=== PATIENT | male | born 1970 | race Caucasian/White ===

== ENCOUNTER → 2020-12-13 | Outpatient (CLI) | payer MEDICAID ==
--- NOTE | 2020-12-14 02:44 | MR ---
EXAMINATION TYPE: MR brain wo/w con DATE OF EXAM: 12/13/2020 COMPARISON: None HISTORY: Vision loss right eye, migraine. CONTRAST: Standard multiplanar, multisequence MRI departmental protocol utilizing 7.5 mL intravenous Gadavist g adolinium contrast. Multiplanar multiecho imaging of the brain was performed with contrast. Ventricles have fairly normal size. There is no mass effect nor midline shift. There is no sign of in tracranial hemorrhage. Corpus callosum appears normal. Sella turcica is normal. Optic chiasm appears normal. Diffusion images show no evidence of an infarct. The jesus-white matter structures have fairly normal signal pattern. There is no evidence of cerebral edema. There is normal enhancement of the venous sinuses. There is no evidence of sellar mass. Pituitary sta lk is in the midline. There is no evidence of orbital mass. IMPRESSION: Negative MR scan of the brain. I do not see a cause for vision loss.
== END | disposition home or self-care (01) ==
LOC: RADMRIMAIN 20:37
PROVIDERS: ATTEND Ophthalmology
DX: H53.8 Other visual disturbances (principal); G43.909 Migraine, unspecified, not intractable, without status migrainosus
CPT/HCPCS: 70553; A9585

== ENCOUNTER → 2023-06-03 | Outpatient (CLI) | payer BC ==
--- NOTE | 2023-06-04 10:25 | CT ---
EXAMINATION TYPE: CT sinus wo con DATE OF EXAM: 06/03/2023 COMPARISON: None HISTORY: Sinus drainage - states that he blew out a polyp CT DLP: 532.3 mGycm CONTRAST: 0 mL of Isovue 300 The paranasal sinuses are examined in the axial plane at 2 mm thick sections. Reconstructed images i n the coronal plane were obtained. There is dental amalgam scatter artifact The maxillary sinuses are clear. There may be some minimal anterior left ethmoid air cell mucosal th ickening. The sphenoid sinuses are clear. The frontal sinuses are clear. The septum is evaluated. There is septal deviation to the left. Appears to be some mucosal thickenin g or polyp along the left nasal passage wall. The ostiomeatal units are patent. IMPRESSION: 1. Minimal mucosal thickening anterior left ethmoid air cell. 2. Retention cyst or polyp left maxillary wall within the nasal passage.
== END | disposition home or self-care (01) ==
LOC: RADCTMAIN 16:06
PROVIDERS: ATTEND Otolaryngology
DX: J34.89 Other specified disorders of nose and nasal sinuses (principal); J33.8 Other polyp of sinus
CPT/HCPCS: 70486

== ENCOUNTER 2023-09-24 02:52 | Emergency (ER) | payer BC ==
[2023-09-24 03:30] VITALS: TEMP 97.8
[2023-09-24 03:39] LABS: Basophils # (A) 0.1 k/uL (0-0.2); Basophils % (A) 1 %; Eosinophils # (A) 0.1 k/uL (0-0.7); Eosinophils % (A) 3 %; HCT 40.6 % (39.0-53.0); HGB 14.7 gm/dL (13.0-17.5); Lymphocytes # (A) 1.6 k/uL (1.0-4.8); Lymphocytes % (A) 29 %; MCH 31.1 pg (25.0-35.0); MCHC 36.1 g/dL (31.0-37.0); MCV 86.1 fL (80.0-100.0); Mean Platelet Volume 7.7; Monocytes # (A) 0.3 k/uL (0-1.0); Monocytes % (A) 5 %; Neutrophils # (A) 3.2 k/uL (1.3-7.7); Neutrophils % (A) 60 %; Platelet Count 224 k/uL (150-450); RBC 4.72 m/uL (4.30-5.90); RDW 12.8 % (11.5-15.5); WBC 5.3 k/uL (3.8-10.6)
--- NOTE | 2023-09-24 03:50 | ED ---
General Adult HPI - General Chief complaint: Dizziness Stated complaint: Dizziness, High blood pressure, weakness Time Seen by Provider: 09/24/23 03:06 Source: patient Mode of arrival: ambulatory Limitations: no limitations - History of Present Illness Initial comments: Connor is a very healthy 53-year-old gentleman who presents the ER today for evaluation of an episode of hypertension. Patient states that over the past couple of notes his primary care and his ENT have noted that his blood pressure is mildly elevated so something they are closely watching. He is not currently medicated. Patient states he has been in his usual state of health has been eating and drinking his usual diet not dehydrated no nausea vomiting or diarrhea. He states he went to bed at his usual time and woke up to use the restroom but when he stood up he felt very lightheaded his noted that his face was flushed she checked his blood pressure and noted that it was significantly elevated with diastolic over 115, she had him lay down for 15 minutes but rechecked and his diastolic remained 111 so she decided bring him to the ER for evaluation. Patient reports he had no headache no vision changes no chest pain no palpitations or no shortness of breath with this episode he just stood up felt lightheaded and then sat back down and noted he was flushed. Patient reports minimal caffeine intake, no smoking no drugs no alcohol. - Related Data Allergies Allergy/AdvReac Type Severity Reaction Status Date / Time No Known Allergies Allergy Verified 09/24/23 03:02 Review of Systems ROS Statement: Those systems with pertinent positive or pertinent negative responses have been documented in the HPI. ROS Other: All systems not noted in ROS Statement are negative. Past Medical History Past Medical History: No Reported History Additional Past Surgical History / Comment(s): Deviated septum 4 weeks ago, perforated ulcer in early 20's Smoking Status: Former smoker Past Alcohol Use History: None Reported Past Drug Use History: None Reported General Exam Limitations: no limitations General appearance: alert, in no apparent distress Head exam: Present: atraumatic Eye exam: Present: PERRL ENT exam: Present: normal exam Neck exam: Present: normal inspection Respiratory exam: Present: normal lung sounds bilaterally. Absent: respiratory distress Cardiovascular Exam: Present: regular rate, normal rhythm GI/Abdominal exam: Present: soft. Absent: distended Rectal exam: Present: deferred Extremities exam: Present: normal inspection, full ROM. Absent: pedal edema Back exam: Present: normal inspection Neurological exam: Present: alert, oriented X3 Psychiatric exam: Present: normal affect, normal mood Skin exam: Present: warm, dry, intact Course Vital Signs 09/24/23 09/24/23 09/24/23 02:57 03:56 04:31 Temperature 97.8 F Pulse Rate 86 69 60 Respiratory 18 16 16 Rate Blood Pressure 158/101 135/92 127/82 O2 Sat by Pulse 100 96 94 L Oximetry 09/24/23 04:45 Temperature Pulse Rate 66 Respiratory 16 Rate Blood Pressure 121/84 O2 Sat by Pulse 99 Oximetry Medical Decision Making - Medical Decision Making Was pt. sent in by a medical professional or institution (, PA, POWER WASHER, urgent care, hospital, or longterm...) When possible be specific @ -No Did you speak to anyone other than the patient for history (EMS, parent, family, police, friend...)? What history was obtained from this source @ --Bedside Did you review nursing and triage notes (agree or disagree)? Why? @ -I reviewed and agree with nursing and triage notes Were old charts reviewed (outside hosp., previous admission, EMS record, old EKG, old radiological studies, urgent care reports/EKG's, longterm records)? Report findings @ -No old charts were reviewed Differential Diagnosis (chest pain, altered mental status, abdominal pain women, abdominal pain men, vaginal bleeding, weakness, fever, dyspnea, syncope, headache, dizziness, GI bleed, back pain, seizure, CVA, palpatations, mental health)? @ -Differential Palpitations Ventricular arrhythmias, atrial arrhythmias, myocardial infarction, anemia, thyrotoxicosis, electrolyte imbalance, hypokalemia, pulmonary embolism, pulm onary disease, drugs, alcohol, anxiety, stress.... This is not meant to be an all-inclusive list. EKG interpreted by me (3pts min.). @ -As above X-rays interpreted by me (1pt min.). @ -None done CT interpreted by me (1pt min.). @ -None done U/S interpreted by me (1pt. min.). @ -None done What testing was considered but not performed or refused? (CT, X-rays, U/S, labs)? Why? @ -None What meds were considered but not given or refused? Why? @ -Antihypertensives were discussed but not given due to normalization of the patient's blood pressure Did you discuss the management of the patient with other professionals (professionals i.e. , PA, POWER WASHER, lab, RT, psych nurse, social services director, shingle weaver, teacher, school services officer, case technician)? Give summary @ -No Was smoking cessation discussed for >3mins.? @ -No Was critical care preformed (if so, how long)? @ -No Were there social determinants of health that impacted care today? How? (Homelessness, low income, unemployed, alcoholism, drug addiction, transportation, low edu. Level, literacy, decrease access to med. care, longterm, rehab)? @ -No Was there de-escalation of care discussed even if they declined (Discuss DNR or withdrawal of care, Hospice)? DNR status @ -No What co-morbidities impacted this encounter? (DM, HTN, Smoking, COPD, CAD, Cancer, CVA, ARF, Chemo, Hep., AIDS, mental health diagnosis, sleep apnea, morbid obesity)? @ -None Was patient admitted / discharged? Hospital course, mention meds given and route, prescriptions, significant lab abnormalities, going to OR and other pertinent info. @ -Discharge The patient was seen and evaluated, history was obtained from the patient and . Patient seemed to stand up to get lightheaded sit down and then check his blood pressure noted it was elevated. Uncertain what the provocation for this was. Patient's labs are unremarkable patient's blood pressure normalized here patient has close outpatient follow-up with his primary care discomfort plan for discharge home. Undiagnosed new problem with uncertain prognosis? @ -No Drug Therapy requiring intensive monitoring for toxicity (Heparin, Nitro, Insulin, Cardizem)? @ -No Were any procedures done? @ -No Diagnosis/symptom? @ -Episode of hypertension Acute, or Chronic, or Acute on Chronic? @ -Acute Uncomplicated (without systemic symptoms) or Complicated (systemic symptoms)? @ -Complicated with lightheadedness and flushing Side effects of treatment? @ -No Exacerbation, Progression, or Severe Exacerbation? @ -No Poses a threat to life or bodily function? How? (Chest pain, USA, [place], pneumonia, PE, COPD, DKA, ARF, appy, cholecystitis, CVA, Diverticulitis, Homicidal, Suicidal, threat to staff... and all critical care pts) @ -Unlikely - Lab Data Result diagrams: 09/24/23 03:33 09/24/23 03:33 Lab Results 09/24/23 09/24/23 Range/Units 03:33 03:33 WBC 5.3 (3.8-10.6) k/uL RBC 4.72 (4.30-5.90) m/uL Hgb 14.7 (13.0-17.5) gm/dL Hct 40.6 (39.0-53.0) % MCV 86.1 (80.0-100.0) fL MCH 31.1 (25.0-35.0) pg MCHC 36.1 (31.0-37.0) g/dL RDW 12.8 (11.5-15.5) % Plt Count 224 (150-450) k/uL MPV 7.7 Neutrophils % 60 % Lymphocytes % 29 % Monocytes % 5 % Eosinophils % 3 % Basophils % 1 % Neutrophils # 3.2 (1.3-7.7) k/uL Lymphocytes # 1.6 (1.0-4.8) k/uL Monocytes # 0.3 (0-1.0) k/uL Eosinophils # 0.1 (0-0.7) k/uL Basophils # 0.1 (0-0.2) k/uL Sodium 141 (137-145) mmol/L Potassium 3.6 (3.5-5.1) mmol/L Chloride 111 H (98-107) mmol/L Carbon Dioxide 21 L (22-30) mmol/L Anion Gap 9 mmol/L BUN 15 (9-20) mg/dL Creatinine 0.71 (0.66-1.25) mg/dL Est GFR (CKD-EPI)AfAm >90 (>60 ml/min/1.73 sqM) Est GFR (CKD-EPI)NonAf >90 (>60 ml/min/1.73 sqM) Glucose 102 H (74-99) mg/dL Calcium 8.9 (8.4-10.2) mg/dL Total Bilirubin 0.8 (0.2-1.3) mg/dL AST 30 (17-59) U/L ALT 18 (4-49) U/L Alkaline Phosphatase 77 (38-126) U/L Total Protein 6.5 (6.3-8.2) g/dL Albumin 4.0 (3.5-5.0) g/dL TSH 1.800 (0.465-4.680) mIU/L Disposition Clinical Impression: Hypertension Disposition: HOME SELF-CARE Condition: Stable Additional Instructions: Continue to monitor your blood pressure at home follow-up with your primary care provider for any persistently elevated readings, return to the ER if you develop any chest pain palpitation shortness of breath or any new or concerning symptoms Is patient prescribed a controlled substance at d/c from ED?: No Referrals: Anuj Grimm MD [Primary Care Provider] - 1-2 days
[2023-09-24 04:27] LABS: ALT 18 U/L (4-49); AST 30 U/L (17-59); African American GFR (CKD) >90 (>60 ml/min/1.73 sqM); Alkaline Phosphatase 77 U/L (38-126); Anion Gap 9 mmol/L; Blood Urea Nitrogen 15 mg/dL (9-20); Calcium 8.9 mg/dL (8.4-10.2); Carbon Dioxide 21 mmol/L (22-30); Chloride 111 mmol/L (98-107); Glucose 102 mg/dL (74-99); Non-African American GFR(CKD) >90 (>60 ml/min/1.73 sqM); Potassium 3.6 mmol/L (3.5-5.1); Sodium 141 mmol/L (137-145); Total Bilirubin 0.8 mg/dL (0.2-1.3); Total Protein 6.5 g/dL (6.3-8.2)
[2023-09-24 04:30] VITALS: RESP 16
[2023-09-24 05:01] VITALS: BP 121/84; PULSE 66
== END 2023-09-24 04:46 | disposition home or self-care (01) ==
LOC: EC 02:52
DX: I10 Essential (primary) hypertension (principal); Z87.891 Personal history of nicotine dependence
CPT/HCPCS: 36415; 80053; 84443; 85025; 99284

== ENCOUNTER → 2024-01-19 | Outpatient (CLI) | payer OTHER ==
--- NOTE | 2024-01-19 12:26 | XR ---
EXAM TYPE: LUMBAR SPINE X RAY SERIES COMPARISON: NONE HISTORY: Pain TECHNIQUE: 4 views are submitted. FINDINGS: Alignment is anatomic. The pedicles are intact. The transverse processes are intact. There is gene ralized demineralization with multilevel degenerative disc disease with severe changes L5-S1 and L4-5 . Posterior spondylosis. There is anterior spurring at all levels and facet arthropathy lower lumbar spine. IMPRESSION: 1. Multilevel degenerative disc disease most marked at L4-5 and L5-S1.
== END | disposition home or self-care (01) ==
LOC: RADXRMAIN 12:08
PROVIDERS: ATTEND Emergency Medicine
DX: S39.012A Strain of muscle, fascia and tendon of lower back, initial encounter (principal); R20.9 Unspecified disturbances of skin sensation; M51.36 Other intervertebral disc degeneration, lumbar region; M51.37 Other intervertebral disc degeneration, lumbosacral region
CPT/HCPCS: 72100

== ENCOUNTER 2024-04-26 16:15 | Emergency (ER) | payer BC ==
[2024-04-26 16:20] VITALS: RESP 18
--- NOTE | 2024-04-26 16:35 | ED ---
Fall HPI - General Chief Complaint: Fall Stated Complaint: head injury, fall Time Seen by Provider: 04/26/24 16:31 Source: patient, RN notes reviewed Mode of arrival: ambulatory - History of Present Illness Initial Comments: This is a 53-year-old male with significant past medical history presenting to the emergency department with his for chief complaint of a head injury. 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 Patient states that he jumped off of the ladder afterwards. Patient denies any loss of consciousness after the injury. He denies any vomiting or feelings of nausea as well. Currently states that he has a mild headache rated as a 4 out of 10. Patient denies other injuries at the time of this event and denies falling onto his head. Believes his last tetanus vaccination was within 7 years. No other acute complaints at this time - Related Data Allergies Allergy/AdvReac Type Severity Reaction Status Date / Time No Known Allergies Allergy Verified 04/26/24 16:20 Review of Systems ROS Statement: Those systems with pertinent positive or pertinent negative responses have been documented in the HPI. ROS Other: All systems not noted in ROS Statement are negative. Past Medical History Past Medical History: No Reported History Additional Past Surgical History / Comment(s): Deviated septum 4 weeks ago, perforated ulcer in early 20's Smoking Status: Former smoker Past Alcohol Use History: None Reported Past Drug Use History: None Reported General Exam Limitations: no limitations Expanded Head exam: Present: laceration, hematoma (crown of head 3.5 cm laceration, bleeding controlled) Eye exam: Present: normal appearance, PERRL, EOMI. Absent: scleral icterus, conjunctival injection, periorbital swelling Neck exam: Present: normal inspection. Absent: tenderness, meningismus, lymphadenopathy Respiratory exam: Present: normal lung sounds bilaterally. Absent: respiratory distress, wheezes, rales, rhonchi, stridor Cardiovascular Exam: Present: regular rate, normal rhythm, normal heart sounds. Absent: systolic murmur, diastolic murmur, rubs, gallop, clicks GI/Abdominal exam: Present: soft, normal bowel sounds. Absent: distended, tenderness, guarding, rebound, rigid Extremities exam: Present: normal inspection, full ROM, normal capillary refill. Absent: tenderness, pedal edema, joint swelling, calf tenderness Back exam: Present: normal inspection Skin exam: Present: warm, dry, intact, normal color. Absent: rash Course Vital Signs 04/26/24 04/26/24 16:16 17:49 Temperature 97.8 F 98.7 F Pulse Rate 87 66 Respiratory 18 18 Rate Blood Pressure 159/99 146/90 O2 Sat by Pulse 96 96 Oximetry Procedures - Laceration Laceration #1 Consent Obtained: verbal consent Indication: laceration Site: scalp Size (cm): 4 Description: linear Depth: simple, single layer Pre-repair: wound explored, irrigated extensively Type of Sutures: other (staple) Size of Sutures: other (staple) Number of Sutures: 3 (staple) Patient Tolerated Procedure: well, no complications Medical Decision Making - Medical Decision Making Was pt. sent in by a medical professional or institution (, PA, PLANT OPERATOR CONTROL ROOM OPERATOR, urgent care, hospital, or halfway...) When possible be specific @ -No Did you speak to anyone other than the patient for history (EMS, parent, family, police, friend...)? What history was obtained from this source @ -Patient's at bedside states that he is acting appropriately and there is no loss of consciousness after the event and no episodes of emesis. Did you review nursing and triage notes (agree or disagree)? Why? @ -I reviewed and agree with nursing and triage notes Were old charts reviewed (outside hosp., previous admission, EMS record, old EKG, old radiological studies, urgent care reports/EKG's, halfway records)? Report findings @ -No old charts were reviewed Differential Diagnosis (chest pain, altered mental status, abdominal pain women, abdominal pain men, vaginal bleeding, weakness, fever, dyspnea, syncope, headache, dizziness, GI bleed, back pain, seizure, CVA, palpatations, mental health, musculoskeletal)? @ -Contusion, laceration, concussion, intracranial hemorrhage, skull fracture, this list is not all inclusive EKG interpreted by me (3pts min.). @ -none X-rays interpreted by me (1pt min.). @ -None done CT interpreted by me (1pt min.). @ -CT of the brain without contrast negative for acute intracranial process. U/S interpreted by me (1pt. min.). @ -None done What testing was considered but not performed or refused? (CT, X-rays, U/S, labs)? Why? @ -None What meds were considered but not given or refused? Why? @ -None Did you discuss the management of the patient with other professionals (roberto carlos jimenes i.e. , PA, PLANT OPERATOR CONTROL ROOM OPERATOR, lab, RT, psych nurse, aids social worker, back tender cloth printing, teacher, electoral officer, special education case manager)? Give summary @ -No Was smoking cessation discussed for >3mins.? @ -No Was critical care preformed (if so, how long)? @ -No Were there social determinants of health that impacted care today? How? (Homelessness, low income, unemployed, alcoholism, drug addiction, transportation, low edu. Level, literacy, decrease access to med. care, snf, rehab)? @ -No Was there de-escalation of care discussed even if they declined (Discuss DNR or withdrawal of care, Hospice)? DNR status @ -No What co-morbidities impacted this encounter? (DM, HTN, Smoking, COPD, CAD, Cancer, CVA, ARF, Chemo, Hep., AIDS, mental health diagnosis, sleep apnea, morbid obesity)? @ -None Was patient admitted / discharged? Hospital course, mention meds given and route, prescriptions, significant lab abnormalities, going to OR and other pertinent info. @ -Discharge. 53-year-old male with a head injury. No evaluation patient is resting comfortably with ice pack and rag over scalp laceration. There is a approximately 4 cm laceration to the patient's current his scalp and bleeding is controlled. There is a hematoma present as well. Complete neurological examination with no acute deficits. The patient was evaluated tetanus vaccination and will be sent for CT imaging concern for possible intracranial injury due to high mechanism of impact. He is agreeable this plan. Patient was offered pain medication he is declined at this time. CT negative for acute process. Patient's laceration was cleansed with sterile water and 3 uriel were placed. Informed patient to continue supportive treatment at home using Tylenol and/or Motrin and icing the affected area. Have patient report to emergency department or to his wound care provider in 7 days for staple removal. All questions answered at bedside strict return prior discussed with patient he verbalized understanding. He is provided with a work note for tomorrow as well. Case discussed with Dr. Ortiz Undiagnosed new problem with uncertain prognosis? @ -No Drug Therapy requiring intensive monitoring for toxicity (Heparin, Nitro, Insulin, Cardizem)? @ -No Were any procedures done? @ -No Diagnosis/symptom? @ -scalp laceration, hematoma, head injury Acute, or Chronic, or Acute on Chronic? @ -acute Uncomplicated (without systemic symptoms) or Complicated (systemic symptoms)? @ -uncomplicated Side effects of treatment? @ -No Exacerbation, Progression, or Severe Exacerbation? @ -No Poses a threat to life or bodily function? How? (Chest pain, USA, [place], pneumonia, PE, COPD, DKA, ARF, appy, cholecystitis, CVA, Diverticulitis, Homicidal, Suicidal, threat to staff... and all critical care pts) @ -No Disposition Clinical Impression: Laceration of scalp Disposition: HOME SELF-CARE Condition: Good Instructions (If sedation given, give patient instructions): Concussion (ED), Staple Care (ED) Additional Instructions: Return emergency department for any new or worsening symptoms. Return to the emergency department or your primary care provider in 7 days for staple removal. Continue supportive treatment at home cycling Tylenol Motrin and icing your scalp to minimize inflammation and pain. Is patient prescribed a controlled substance at d/c from ED?: No Referrals: Nonstaff,Physician [Primary Care Provider] - 1-2 days Time of Disposition: 17:22
--- NOTE | 2024-04-26 16:57 | CT ---
EXAMINATION TYPE: CT brain wo con DATE OF EXAM: 04/26/2024 COMPARISON: None HISTORY: head injury, lac to right posterior side of head CT DLP: 1153.[address] of the brain was performed. The ventricles, basal cisterns and sulci overlying the cerebral convexities demonstrate mild enlargem ent. There is no evidence for intracranial hemorrhage or sulcal effacement. There is decreased attenuation about the periventricular white matter and deep white matter of both c erebral hemispheres, compatible with chronic small vessel ischemia. Differential diagnosis does inclu de demyelination. No mass effects are seen.No midline shift. Osseous calvarium is intact. If symptoms persist consider MRI. IMPRESSION: 1. Age related atrophic and chronic small vessel ischemic change without acute intracranial process s een at this time. [facility], , 04/26/2024 4:55 PM
[2024-04-26] MEDS: DIPH,PERTUS(ACELL)TETVAC-LF 0.5 ML VIAL IM ONE (17:09)
[2024-04-26 17:51] VITALS: BP 146/90; PULSE 66; TEMP 98.7
== END 2024-04-26 17:51 | disposition home or self-care (01) ==
LOC: EC 16:15
CPT/HCPCS: 12002; 70450; 90471; 90715; 99284

== ENCOUNTER 2024-08-10 18:44 | Emergency (ER) | payer BC ==
--- NOTE | 2024-08-10 19:29 | ED ---
General Adult HPI - General Chief complaint: Arrhythmia/Palpitations Stated complaint: bp Time Seen by Provider: 08/10/24 19:08 Source: patient, family, RN notes reviewed Mode of arrival: ambulatory Limitations: no limitations - History of Present Illness Initial comments: This is a 54-year-old male with no reported medical history presenting to the emergency department with his for concern of hypertension. Patient states that he returned from work around noon today when he told his that he felt off. at bedside states that she checked the patient's blood pressure noted to be elevated with a diastolic number ranging in the 90s to 110s. Patient states that throughout the day he has been experiencing intermittent chest pressure and a noted burning sensation of the left side of his chest that was nonradiating. States he has been intermittently experiencing heart palpitations. Of note, states that he has been having exertional dyspnea today as well. Denies history of DVT, PE, recent prolonged travel, recent surgeries or hemoptysis. Patient does have a history of varicose veins and states that he has been having pain of his right lower extremity with swelling over the past few weeks. - Related Data Allergies Allergy/AdvReac Type Severity Reaction Status Date / Time No Known Allergies Allergy Verified 08/10/24 19:00 Review of Systems ROS Statement: Those systems with pertinent positive or pertinent negative responses have been documented in the HPI. ROS Other: All systems not noted in ROS Statement are negative. Past Medical History Past Medical History: No Reported History Additional Past Surgical History / Comment(s): Deviated septum 4 weeks ago, perforated ulcer in early 20's Smoking Status: Former smoker Past Alcohol Use History: None Reported Past Drug Use History: None Reported General Exam Limitations: no limitations Eye exam: Present: normal appearance, PERRL, EOMI. Absent: scleral icterus, conjunctival injection, periorbital swelling Respiratory exam: Present: normal lung sounds bilaterally. Absent: respiratory distress, wheezes, rales, rhonchi, stridor Cardiovascular Exam: Present: regular rate, normal rhythm, normal heart sounds. Absent: systolic murmur, diastolic murmur, rubs, gallop, clicks GI/Abdominal exam: Present: soft, normal bowel sounds. Absent: distended, tenderness, guarding, rebound, rigid Extremities exam: Present: normal inspection, full ROM, normal capillary refill. Absent: tenderness, pedal edema, joint swelling, calf tenderness Right Lower Leg exam: Present: full ROM, tenderness, swelling. Absent: ecchymosis, deformity, crepitus Neurovascular tendon exam: Present: no vascular compromise Gait: observed and normal Back exam: Present: normal inspection Neurological exam: Present: alert, oriented X3, CN II-XII intact Course Vital Signs 08/10/24 08/10/24 08/10/24 19:00 21:00 22:06 Temperature 98.3 F Pulse Rate 89 68 71 Respiratory 19 18 18 Rate Blood Pressure 148/98 127/96 128/92 O2 Sat by Pulse 96 94 L 94 L Oximetry Medical Decision Making - Medical Decision Making Was pt. sent in by a medical professional or institution (, PA, PAPER MACHINE TENDER, urgent care, hospital, or prison...) When possible be specific @ -No Did you speak to anyone other than the patient for history (EMS, parent, family, police, friend...)? What history was obtained from this source @ -No Did you review nursing and triage notes (agree or disagree)? Why? @ -I reviewed and agree with nursing and triage notes Were old charts reviewed (outside hosp., previous admission, EMS record, old EKG, old radiological studies, urgent care reports/EKG's, prison records)? Report findings @ -No old charts were reviewed Differential Diagnosis (chest pain, altered mental status, abdominal pain women, abdominal pain men, vaginal bleeding, weakness, fever, dyspnea, syncope, headache, dizziness, GI bleed, back pain, seizure, CVA, palpatations, mental health, musculoskeletal)? @ -Differential Palpitations Ventricular arrhythmias, atrial arrhythmias, myocardial infarction, anemia, thyrotoxicosis, electrolyte imbalance, hypokalemia, pulmonary embolism, pulmonary disease, drugs, alcohol, anxiety, stress.... This is not meant to be an all-inclusive list. EKG interpreted by me (3pts min.). @ -Completed at 1813 sinus rhythm with a ventricular rate of 81, NH interval 197, QRS 104, QTc 405. X-rays interpreted by me (1pt min.). @ -Chest x-ray no acute cardiopulmonary process or disease CT interpreted by me (1pt min.). @ -None done U/S interpreted by me (1pt. min.). @ -None done What testing was considered but not performed or refused? (CT, X-rays, U/S, labs)? Why? @ -None What meds were considered but not given or refused? Why? @ -None Did you discuss the management of the patient with other professionals (professionals i.e. , PA, PAPER MACHINE TENDER, lab, RT, psych nurse, social media analyst, territory sales manager, teacher, conservation officer, family caseworker)? Give summary @ -No Was smoking cessation discussed for >3mins.? @ -No Was critical care preformed (if so, how long)? @ -No Were there social determinants of health that impacted care today? How? (Homelessness, low income, unemployed, alcoholism, drug addiction, transportation, low edu. Level, literacy, decrease access to med. care, senior care, rehab)? @ -No Was there de-escalation of care discussed even if they declined (Discuss DNR or withdrawal of care, Hospice)? DNR status @ -No What co-morbidities impacted this encounter? (DM, HTN, Smoking, COPD, CAD, Cancer, CVA, ARF, Chemo, Hep., AIDS, mental health diagnosis, sleep apnea, morbid obesity)? @ -None Was patient admitted / discharged? Hospital course, mention meds given and route, prescriptions, significant lab abnormalities, going to OR and other pertinent info. @ -Discharge. 54-year-old male presenting with heart palpitations and high blood pressure. Noted to be mildly hypertensive on arrival with a blood pressure 148/98. Physical exam remarkable for tenderness to the right lower extremity and mild swelling of the calf and prominent varicosities. Patient will undergo cardiac evaluation including ultrasound of the right lower extremity. Laboratory testing is unremarkable including CBC, CMP, coagulation and D-dimer, troponin, TSH. Chest x-ray and ultrasound unremarkable. 3-hour troponin not nonelevated. Patient has a heart score of 1 with minimal clinical concern for adverse cardiac event to occur in the next 6 weeks. Patient blood pressures remained stable despite medication administration emergency department. Recommend that patient closely follows up outpatient with primary care provider for further evaluation. All questions have been answered at bedside answered return parameters have discussed with the patient he is verbalized understanding. Case discussed with Dr. Logan Undiagnosed new problem with uncertain prognosis? @ -No Drug Therapy requiring intensive monitoring for toxicity (Heparin, Nitro, Insulin, Cardizem)? @ -No Were any procedures done? @ -No Diagnosis/symptom? @ -hypertension, heart palpitations Acute, or Chronic, or Acute on Chronic? @ -acute Uncomplicated (without systemic symptoms) or Complicated (systemic symptoms)? @ -uncomplicated Side effects of treatment? @ -No Exacerbation, Progression, or Severe Exacerbation? @ -No Poses a threat to life or bodily function? How? (Chest pain, [place], [place], pneumonia, PE, COPD, DKA, ARF, appy, cholecystitis, CVA, Diverticulitis, Homicidal, Suicidal, threat to staff... and all critical care pts) @ -No - Lab Data Result diagrams: 08/10/24 19:37 08/10/24 19:37 Lab Results 08/10/24 08/10/24 08/10/24 Range/Units 19:37 19:37 19:37 WBC 9.4 (3.8-10.6) k/uL RBC 5.20 (4.30-5.90) m/uL Hgb 15.4 (13.0-17.5) gm/dL Hct 44.8 (39.0-53.0) % MCV 86.1 (80.0-100.0) fL MCH 29.7 (25.0-35.0) pg MCHC 34.5 (31.0-37.0) g/dL RDW 12.2 (11.5-15.5) % Plt Count 220 (150-450) k/uL MPV 6.7 Neutrophils % 75 % Lymphocytes % 17 % Monocytes % 4 % Eosinophils % 2 % Basophils % 1 % Neutrophils # 7.0 (1.3-7.7) k/uL Lymphocytes # 1.6 (1.0-4.8) k/uL Monocytes # 0.4 (0-1.0) k/uL Eosinophils # 0.2 (0-0.7) k/uL Basophils # 0.1 (0-0.2) k/uL PT 10.4 (10.0-12.5) sec INR 0.9 (<1.2) APTT 25.7 (22.0-30.0) sec D-Dimer 0.28 (<0.60) mg/L FEU Sodium 141 (137-145) mmol/L Potassium 3.5 (3.5-5.1) mmol/L Chloride 107 (98-107) mmol/L Carbon Dioxide 25 (22-30) mmol/L Anion Gap 9 mmol/L BUN 9 (9-20) mg/dL Creatinine 0.73 (0.66-1.25) mg/dL Est GFR (CKD-EPI)AfAm >90 (>60 ml/min/1.73 sqM) Est GFR (CKD-EPI)NonAf >90 (>60 ml/min/1.73 sqM) Glucose 117 H (74-99) mg/dL Calcium 9.7 (8.4-10.2) mg/dL Magnesium 2.1 (1.6-2.3) mg/dL Total Bilirubin 1.1 (0.2-1.3) mg/dL AST 22 (17-59) U/L ALT 15 (4-49) U/L Alkaline Phosphatase 72 (38-126) U/L Troponin I (0.000-0.034) ng/mL Total Protein 6.9 (6.3-8.2) g/dL Albumin 4.3 (3.5-5.0) g/dL TSH 0.775 (0.465-4.680) mIU/L 08/10/24 08/10/24 Range/Units 19:37 22:19 WBC (3.8-10.6) k/uL RBC (4.30-5.90) m/uL Hgb (13.0-17.5) gm/dL Hct (39.0-53.0) % MCV (80.0-100.0) fL MCH (25.0-35.0) pg MCHC (31.0-37.0) g/dL RDW (11.5-15.5) % Plt Count (150-450) k/uL MPV Neutrophils % % Lymphocytes % % Monocytes % % Eosinophils % % Basophils % % Neutrophils # (1.3-7.7) k/uL Lymphocytes # (1.0-4.8) k/uL Monocytes # (0-1.0) k/uL Eosinophils # (0-0.7) k/uL Basophils # (0-0.2) k/uL PT (10.0-12.5) sec INR (<1.2) APTT (22.0-30.0) sec D-Dimer (<0.60) mg/L FEU Sodium (137-145) mmol/L Potassium (3.5-5.1) mmol/L Chloride (98-107) mmol/L Carbon Dioxide (22-30) mmol/L Anion Gap mmol/L BUN (9-20) mg/dL Creatinine (0.66-1.25) mg/dL Est GFR (CKD-EPI)AfAm (>60 ml/min/1.73 sqM) Est GFR (CKD-EPI)NonAf (>60 ml/min/1.73 sqM) Glucose (74-99) mg/dL Calcium (8.4-10.2) mg/dL Magnesium (1.6-2.3) mg/dL Total Bilirubin (0.2-1.3) mg/dL AST (17-59) U/L ALT (4-49) U/L Alkaline Phosphatase (38-126) U/L Troponin I <0.012 <0.012 (0.000-0.034) ng/mL Total Protein (6.3-8.2) g/dL Albumin (3.5-5.0) g/dL TSH (0.465-4.680) mIU/L Disposition Clinical Impression: Hypertension Disposition: HOME SELF-CARE Condition: Good Instructions (If sedation given, give patient instructions): Heart Palpitations (ED), Hypertension (ED) Additional Instructions: Please return to the Emergency Department if symptoms worsen or any other concerns. Is patient prescribed a controlled substance at d/c from ED?: No Referrals: Anuj Grimm MD [Primary Care Provider] - 1-2 days Time of Disposition: 22:52
[2024-08-10 19:45] LABS: Basophils # (A) 0.1 k/uL (0-0.2); Basophils % (A) 1 %; Eosinophils # (A) 0.2 k/uL (0-0.7); Eosinophils % (A) 2 %; HCT 44.8 % (39.0-53.0); HGB 15.4 gm/dL (13.0-17.5); Lymphocytes # (A) 1.6 k/uL (1.0-4.8); Lymphocytes % (A) 17 %; MCH 29.7 pg (25.0-35.0); MCHC 34.5 g/dL (31.0-37.0); MCV 86.1 fL (80.0-100.0); Mean Platelet Volume 6.7; Monocytes # (A) 0.4 k/uL (0-1.0); Monocytes % (A) 4 %; Neutrophils % (A) 75 %; Platelet Count 220 k/uL (150-450); RDW 12.2 % (11.5-15.5); WBC 9.4 k/uL (3.8-10.6)
[2024-08-10 19:55] LABS: ALT 15 U/L (4-49); AST 22 U/L (17-59); African American GFR (CKD) >90 (>60 ml/min/1.73 sqM); Albumin 4.3 g/dL (3.5-5.0); Alkaline Phosphatase 72 U/L (38-126); Anion Gap 9 mmol/L; Blood Urea Nitrogen 9 mg/dL (9-20); Calcium 9.7 mg/dL (8.4-10.2); Carbon Dioxide 25 mmol/L (22-30); Chloride 107 mmol/L (98-107); Glucose 117 mg/dL (74-99); Magnesium 2.1 mg/dL (1.6-2.3); Non-African American GFR(CKD) >90 (>60 ml/min/1.73 sqM); Potassium 3.5 mmol/L (3.5-5.1); Sodium 141 mmol/L (137-145); Total Bilirubin 1.1 mg/dL (0.2-1.3); Total Protein 6.9 g/dL (6.3-8.2)
[2024-08-10 19:58] LABS: INR 0.9 (<1.2); Partial Thromboplastin Time 25.7 sec (22.0-30.0); Prothrombin Time 10.4 sec (10.0-12.5)
--- NOTE | 2024-08-10 20:14 | XR ---
EXAMINATION TYPE: XR chest 2V DATE OF EXAM: 08/10/2024 8:03 PM COMPARISON: None. CLINICAL INDICATION: Male, 54 years old with history of chest pressure, TECHNIQUE: XR chest 2V view(s) obtained. FINDINGS: The heart size is normal. The pulmonary vasculature is normal. The lungs are clear. IMPRESSION: 1. No acute pulmonary process. [facility], Workstation: [facility], 08/10/2024 8:11 PM
--- NOTE | 2024-08-10 21:30 | US ---
EXAMINATION TYPE: US venous doppler duplex LE RT DATE OF EXAM: 08/10/2024 8:29 PM COMPARISON: NONE CLINICAL INDICATION: Male, 54 years old with history of leg swelling, pain; Patient states leg swelli ng for a few years. Hx vein stripping a few times. States swelling at curiel and pain in groin. No hx d vt, not on thinners, Pain TECHNIQUE: The lower extremity deep venous system is examined utilizing real time linear array sonog mallika with graded compression, color doppler sonography, and spectral doppler. SIDE PERFORMED: Right FINDINGS: VESSELS IMAGED: Common Femoral Vein Deep Femoral Vein Greater Saphenous Vein * Femoral Vein Popliteal Vein Small Saphenous Vein * Proximal Calf Veins (* superficial vessels) Right Leg: Appears negative for dvt, Color Doppler imaging shows patency of the vessels. Spectral wa veforms are within normal limits. At the anterior curiel at the area of concern no discrete ultrasound abnormality is evident IMPRESSION: 1. No deep venous thrombosis right lower extremity by ultrasound. 2. No discrete abnormality of the area of concern in position [facility], Workstation: [facility], 08/10/2024 9:28 PM
[2024-08-10 22:12] VITALS: RESP 18
[2024-08-10 23:03] VITALS: BP 134/93; PULSE 63; TEMP 97.8
== END 2024-08-10 23:03 | disposition home or self-care (01) ==
LOC: EC 18:44
DX: R00.2 Palpitations (principal); I10 Essential (primary) hypertension; I83.891 Varicose veins of right lower extremity with other complications; Z87.891 Personal history of nicotine dependence
CPT/HCPCS: 36415; 71046; 80053; 83735; 84443; 84484; 85025; 85379; 85610; 85730; 93005; 99285